=== PATIENT | male | born 1990 | race Hispanic/Latino ===

== ENCOUNTER 2020-02-26 20:23 | Emergency (ER) | payer SELFPAY ==
[2020-02-26 22:12] LABS: Bilirubin Negative (Negative); Blood, Urine Negative (Negative); Clarity Turbid (Clear); Glucose, Urine (Dipstick) Normal (Negative); Ketone, Urine Negative (Negative); Leukocyte Negative Leu/uL (Negative); Nitrite Negative (Negative); Protein, Urine (Dipstick) 20 mg/dL (Neg-Trace); Specific Gravity, Urine 1.031 (1.002-1.036); Urobilinogen Normal mg/dL (Less than 2); pH, Urine 6.5 (5.0-9.0)
== END 2020-02-26 23:50 | disposition home or self-care (01) ==
LOC: ERS 20:23
DX: R42 Dizziness and giddiness (principal)
CPT/HCPCS: 36416; 81003; 93005

== ENCOUNTER 2020-02-29 10:25 | Emergency (ER) | payer SELFPAY ==
[~2020-02-29 10:25] MED LIST: Iopamidol-370 76% 500 ML 1 ML ONE
--- NOTE | 2020-02-29 12:43 | CT ---
CT BRAIN WITHOUT CONTRAST: Date: 02/29/2020 HISTORY: Dizziness. FINDINGS: No evidence of acute infarct, hemorrhage, midline shift, or abnormal extra-axial fluid collections ar e seen. The ventricular size is normal and the basilar cisterns are patent. The bony calvarium is int act. The visualized paranasal sinuses and mastoid air cells are well aerated. IMPRESSION: No CT evidence of acute intracranial process. POS: AH
[2020-02-29 12:46] LABS: #Basophils 0.1 thou/uL (0.0-0.2); #Eosinphils 0.1 thou/uL (0.0-0.7); #Lymphocytes 2.3 thou/uL (1.20-3.40); #Monocytes 0.5 thou/uL (0.11-0.59); #Neutrophils 3.8 thou/uL (1.40-6.50); %Basophils 0.9 % (0.0-1.0); %Eosinophils 1.1 % (0.0-10.0); %Lymphocytes 34.6 % (21.0-51.0); %Monocytes 7.7 % (0.0-10.0); %Neutrophils 55.7 % (42.0-75.0); Hemoglobin 16.2 g/dL (14.0-18.0); Mean Corpuscular HGB CONC 33.7 g/dL (32.0-36.0); Mean Corpuscular Hemoglobin 31.7 pg (27.0-31.0); Mean Platelet Volume 8.9 fL (7.4-10.4); Platelet Count 268 thou/uL (130-400); RBC Distribution Width 12.1 % (11.5-14.5); Red Blood Cell (RBC) Count 5.12 mill/uL (4.70-6.10); White Blood Cell (WBC) Count 6.8 thou/uL (4.8-10.8)
[2020-02-29 13:11] LABS: ALT (SGPT) 41 U/L (8-55); AST (SGOT) 26 U/L (5-34); Albumin 4.8 g/dL (3.5-5.0); Alkaline Phosphatase 52 U/L (40-110); Anion Gap 14 mmol/L (10-20); BUN (Urea Nitrogen) 10 mg/dL (8.9-20.6); Bilirubin, Total 1.7 mg/dL (0.2-1.2); Calc. Creatinine Clearance 0 mL/min (70-130); Calcium 9.3 mg/dL (7.8-10.44); Carbon Dioxide 26 mmol/L (22-29); Chloride 102 mmol/L (98-107); Estimated GFR-MDRD Greater than 90; Globulin 2.9 g/dL (2.4-3.5); Glucose 94 mg/dL (70-105); Lipase 22 U/L (8-78); Magnesium 1.8 mg/dL (1.6-2.6); Potassium 4.3 mmol/L (3.5-5.1); Protein, Total 7.7 g/dL (6.0-8.3); Sodium 138 mmol/L (136-145)
--- NOTE | 2020-02-29 14:07 | CT ---
CTA HEAD: CTA NECK: 02/29/20 TECHNIQUE: Axial tomograms obtained through the head and neck following angio protocol with multiplanar reconstr uctions and 3D postprocessing. INDICATIONS: Dizziness. CTA HEAD: Intracranial internal carotid arteries are patent and symmetric. Cavernous ICAs appear patent and sym metric. Both anterior cerebral arteries appear unremarkable. The middle cerebral arteries are patent and symmetric. Basilar arteries patent. The posterior cerebral arteries appear open and symmetric. Small atretic transverse sinus on the right. Otherwise, the dural venous sinuses appear patent. IMPRESSION: 1. Unremarkable CTA head. 2. Very small atretic right transverse and sigmoid sinus. CTA NECK: Origin of the arch vessels appear unremarkable. The common carotid arteries and the extracranial inte rnal carotid arteries are unremarkable and symmetric. Vertebral arteries are patent. There is a mildly dominant left vertebral. No soft tissue abnormality. IMPRESSION: Unremarkable CTA neck. Fsdldld and internal carotid arteries and internal carotid arteries POS: AGW
== END 2020-02-29 14:23 | disposition home or self-care (01) ==
LOC: ERS 10:25
DX: R55 Syncope and collapse (principal)
CPT/HCPCS: 36415; 36416; 70450; 70496; 70498; 80053; 83690; 83735; 84484; 85025; 93005; 96360; Q9967

== ENCOUNTER 2020-03-02 18:46 | Emergency (ER) | payer OTHER, SELFPAY ==
[2020-03-02] MEDS ORDERED: Ondansetron ODT 4 MG TAB ONE (19:34)
[2020-03-02] MEDS ORDERED: Meclizine HCl 25 MG TAB ONE (19:34)
[2020-03-03 15:25] LABS: SARS-CoV-2 MS2 Positive; SARS-CoV-2 N Gene Negative; SARS-CoV-2 S Gene Negative; SARS-CoV-2 by NAA Not Detected (NotDetected); SARS-CoV-2 orf1ab Negative
== END 2020-03-02 22:13 | disposition home or self-care (01) ==
LOC: ERS 18:46
DX: R42 Dizziness and giddiness (principal); R11.2 Nausea with vomiting, unspecified; Z20.828 Contact with and (suspected) exposure to other viral communicable diseases
CPT/HCPCS: 87635; 99284; Q0162; U0003

== ENCOUNTER 2022-04-21 18:22 | Emergency (ER) | payer OTHER, SELFPAY ==
[2022-04-21] MEDS ORDERED: Ketorolac Tromethamine 30 MG/ML VIAL ONE (23:09)
== END 2022-04-22 00:25 | disposition home or self-care (01) ==
LOC: ERS 18:22
DX: S16.1XXA Strain of muscle, fascia and tendon at neck level, initial encounter (principal); V49.40XA Driver injured in collision with unspecified motor vehicles in traffic accident, initial encounter
CPT/HCPCS: 70450; 71045; 72125; 96374; J1885

== ENCOUNTER 2024-06-07 18:13 | Emergency (ER) | payer SELFPAY ==
[2024-06-07] MEDS ORDERED: Acetaminophen 325 MG TAB ONE (18:27)
[2024-06-07 20:14] LABS: #Basophils 0.04 10x3/uL (0.0-0.2); %Basophils 0.5 % (0.0-1.0); %Eosinophils 1.4 % (0.0-10.0); %Lymphocytes 29.4 % (21.0-51.0); %Monocytes 9.5 % (0.0-10.0); %Neutrophils 58.6 % (42.0-75.0); Hematocrit 42.3 % (42.0-52.0); Hemoglobin 15.1 g/dL (14.0-18.0); Mean Corpuscular HGB CONC 35.7 g/dL (32.0-36.0); Mean Corpuscular Hemoglobin 31.1 pg (27.0-31.0); Platelet Count 262 10x3/uL (130-400); RBC Distribution Width 13.2 % (11.5-14.5); Red Blood Cell (RBC) Count 4.86 mill/uL (4.70-6.10)
[2024-06-07 20:34] LABS: ALT (SGPT) 38 U/L (8-55); AST (SGOT) 23 U/L (5-34); Albumin 4.1 g/dL (3.5-5.0); Alkaline Phosphatase 53 U/L (40-110); Anion Gap 15 mmol/L (10-20); BUN (Urea Nitrogen) 10 mg/dL (8.9-20.6); Bilirubin, Direct 0.3 mg/dL (0.1-0.3); Bilirubin, Total 1.2 mg/dL (0.2-1.2); Calc. Creatinine Clearance 0 mL/min (70-130); Calcium 8.9 mg/dL (7.8-10.44); Carbon Dioxide 23 mmol/L (22-29); Chloride 105 mmol/L (98-107); Estimated GFR 122; Glucose 81 mg/dL (70-105); Potassium 3.7 mmol/L (3.5-5.1); Protein, Total 7.6 g/dL (6.0-8.3); Sodium 139 mmol/L (136-145)
== END 2024-06-07 20:40 | disposition home or self-care (01) ==
LOC: ERS 18:13
DX: S16.1XXA Strain of muscle, fascia and tendon at neck level, initial encounter (principal); M79.18 Myalgia, other site; V89.2XXA Person injured in unspecified motor-vehicle accident, traffic, initial encounter
CPT/HCPCS: 36415; 70450; 71045; 72125; 72170; 80048; 80076; 85025